=== PATIENT | female | born 1960 | race Caucasian/White ===

== ENCOUNTER → 2020-11-06 | Outpatient (CLI) | payer OTHER ==
[2020-11-06 09:24] LABS: PROTHROMBIN TIME PATIENT 13.8 SEC (11.7-14.0)
[2020-11-06 09:39] LABS: ALBUMIN 4.7 g/dL (3.4-5.0); CREATININE 1.1 mg/dL (0.6-1.0); GFR 50.7; POTASSIUM 3.6 mmol/L (3.5-5.1); TOTAL BILIRUBIN 0.3 mg/dL (0.2-1.0); TOTAL PROTEIN 9.6 g/dL (6.4-8.2)
--- NOTE | 2020-11-06 13:43 | RAD ---
XR KNEE 1-2 VIEWS History: Bilateral knee pain. Comparison: None. Technique: AP and lateral radiographs of the bilateral knees. Findings: Osseous mineralization is normal. No fracture or dislocation. Joint spaces are relatively well-preser andrew without significant narrowing or osteophyte formation. No joint effusion or soft tissue swelling. Impression: 1. Unremarkable bilateral knees. Electronically signed by: Mikhail Ravi MD (11/06/2020 1:41 PM) [facility]
== END ==
LOC: RAD 08:46
PROVIDERS: ATTEND Surgery
DX: Z02.71 Encounter for disability determination (principal); M25.561 Pain in right knee; M25.562 Pain in left knee
CPT/HCPCS: 36415; 80053; 85610; 73560-50